=== PATIENT | male | born 1955 | race Caucasian/White ===

== ENCOUNTER 2024-10-09 06:10 | Outpatient (CLI) | payer MEDICARE, OTHER ==
[~2024-10-09 06:10] MED LIST: BENZ-16 PO; COMIN IH; COU3T PO; GUAI400T92 PO; PRED20TA PO
[2024-10-09] MEDS ORDERED: LIDOcaine 1%/PF 5ML 10 MG/ML VIAL ONE (06:33)
[2024-10-09] MEDS ORDERED: GADOTERATE MEGLUMINE 7.5 MMOL/15 ML VIAL IV ONE (06:33)
[2024-10-09] MEDS ORDERED: LIDOcaine 1% 30ml preserv. free vial ONE (06:33)
[2024-10-09] MEDS ORDERED: iohexol 300 MG/1 ML 50ml polymer ONE (06:33)
--- NOTE | 2024-10-09 07:43 | RADIOLOGY REPORT ---
C-ARM FLUOROSCOPY: PROCEDURE: Left shoulder MRI injection FLUOROSCOPY TIME: 0.1 DAP: 1 mgy FINDINGS: Spot intraoperative C arm radiographs demonstrating left shoulder injection for MRI arthrography. IMPRESSION: Please refer to surgical report for detailed findings.
== END 2024-10-09 23:59 | disposition home or self-care (01) ==
LOC: RAD 06:10
PROVIDERS: ATTEND Family Medicine Sports Medicine
DX: M25.512 Pain in left shoulder (principal); M77.9 Enthesopathy, unspecified; I10 Essential (primary) hypertension; Z79.890 Hormone replacement therapy; Z79.899 Other long term (current) drug therapy; Z88.5 Allergy status to narcotic agent
CPT/HCPCS: 23350; 77002; A9575; J2003; J3490; Q9967